=== PATIENT | male | born 1990 | race Two or more races ===

== ENCOUNTER → 2020-09-19 | Outpatient (CLI) | payer OTHER ==
[2020-09-20 05:08] LABS: RUBEOLA (MEASLES) IGG 42.1 AU/mL (Immune >16.4)
== END | disposition home or self-care (01) ==
LOC: LABPV 11:30
PROVIDERS: ATTEND Internal Medicine
DX: Z02.1 Encounter for pre-employment examination (principal)
CPT/HCPCS: 86706; 86735; 86762; 86765; 86787

== ENCOUNTER 2020-11-30 15:52 | Emergency (ER) | payer SELFPAY ==
[~2020-11-30] VITALS: Ht 180.3 cm; Wt 95.0 kg
[2020-11-30] MEDS ORDERED: IBUPROFEN 400 MG TABLET PO ONE (17:00)
[2020-11-30 19:08] VITALS: BP 136/76
== END 2020-11-30 19:18 | disposition home or self-care (01) ==
LOC: EMS 15:54
DX: S83.92XA Sprain of unspecified site of left knee, initial encounter (principal); Y04.2XXA Assault by strike against or bumped into by another person, initial encounter; Y93.89 Activity, other specified; Y92.89 Other specified places as the place of occurrence of the external cause; Y99.8 Other external cause status
CPT/HCPCS: 99283

== ENCOUNTER 2021-07-17 13:06 | Emergency (ER) | payer BC, OTHER ==
[~2021-07-17] VITALS: Ht 180.3 cm; Wt 81.8 kg
[2021-07-17] MEDS ORDERED: IBUPROFEN 600 MG TABLET PO ONE (14:00)
[2021-07-17 16:20] VITALS: BP 123/65
== END 2021-07-17 16:53 | disposition home or self-care (01) ==
LOC: EMS 13:06
DX: S43.51XA Sprain of right acromioclavicular joint, initial encounter (principal); Z88.0 Allergy status to penicillin; W05.1XXA Fall from non-moving nonmotorized scooter, initial encounter; Y93.89 Activity, other specified; Y92.89 Other specified places as the place of occurrence of the external cause; Y99.8 Other external cause status
CPT/HCPCS: 99284; 73000-TC; 73030-TC; Z7502; Z7610